=== PATIENT | female | born 1980 | race African-American/Black ===

== ENCOUNTER 2017-04-15 09:47 | Emergency (ER) | payer MEDICARE, OTHER ==
[~2017-04-15] VITALS: Wt 93.5 kg
--- NOTE | 2017-04-15 10:48 | ERD ---
ER Documentation Chief Complaint Chief Complaint DIZZINESS, PALPITATIONS, EPIGASTRIC PAIN RADIATES TO BACK HPI 37-year-old female presented with a chief complaint of palpitations 4 hours. Patient has a history of hypothyroidism. It takes Synthroid. States that she has been taking the correct amount for the past few days. Patient does have a history of mitral valve prolapse is being followed by pulmonary disease specialist. Patient is a half pack smoker per day. Caffeine use. Discussed on the 24 hour shift. Denies any chest pain, shortness of breath, sweating, significant cardiac history, fever, chills. Patient also reports left upper quadrant abdominal pain for the past 3 months. Pain comes and goes. Describes mild constipation. Stools are described as small and regular in color. Denies nausea, vomiting, diarrhea, decreased appetite or radiation of pain. Vaccination status up-to-date. No recent travel. Patient has no other complaints and describes no other associated manifestations. Nursing notes have been reviewed and are consistent with history given. ROS All systems reviewed and are negative except as per history of present illness. Allergies Allergies: Coded Allergies: No Known Allergy (Unverified , 04/15/17) Physical Exam Vitals Vital Signs Date Time Temp Pulse Resp B/P Pulse Ox O2 Delivery O2 Flow Rate FiO2 04/15/17 09:53 97.9 80 17 123/64 100 Physical Exam Const: Well-appearing 37-year-old female in no acute distress Head: Atraumatic Eyes: Normal Conjunctiva ENT: Normal External Ears, Nose and Mouth. Neck: Full range of motion..~ No meningismus. Resp: Clear to auscultation bilaterally Cardio: Regular rate and rhythm, no murmurs. No murmur with handgrip. Abd: Soft, non distended. Normal bowel sounds. Nontender in all 4 quadrants. No McBurney's point tenderness. Negative Stafford sign. Negative psoas sign. No rebound tenderness. No guarding. Skin: No petechiae or rashes Back: No midline or flank tenderness Ext: No cyanosis, or edema Neur: Awake and alert Psych: Normal Mood and Affect Procedures/MDM 37-year-old female presents with a chief complaint of palpitations 4 hours. EKG was obtained read by me as normal sinus rhythm, no T-wave abnormalities, no ST elevation or depression, normal axis, and good baseline. Physical exam was unremarkable. Patient also is complaining of abdominal pain with an unremarkable abdominal examination without tenderness. Patient is well- appearing tolerates p.o. I have no suspicion for ACS, pneumonia, pneumothorax, hemothorax, PE, appendicitis, cholangitis, pancreatitis, diverticulitis, or other acute abdomen. Most likely diagnosis is palpitations secondary to lifestyle and constipation versus IBS. I have spoke with the patient regarding their condition and future management. They have verbally responded that they understand their status and treatment plan. The patients vitals are stable, and their current condition is appropriate for discharge. The patient will be given discharge instructions with return precautions. Departure Diagnosis: Primary Impression: Palpitations Additional Impression: Abdominal pain Abdominal location: unspecified location Qualified Code: R10.9 - Abdominal pain, unspecified abdominal location Condition: Stable Patient Instructions: Palpitations Additional Instructions: Follow up with your PCP within the next 1-3 days for a more thorough evaluation and a possible referral to a specialist. Return the the emergency department immediately if symptoms worsen or change. If you have any questions regarding medications, ask your pharmacist or us before you leave. If any adverse reactions occur while taking your medications, discontinue the treatment and return to the emergency department immediately. PAULINA ORELLANA PA-C Apr 15, 2017 10:48
== END 2017-04-15 11:18 | disposition home or self-care (01) ==
LOC: FTE 09:47
DX: R00.2 Palpitations (principal); R10.13 Epigastric pain; E03.9 Hypothyroidism, unspecified
CPT/HCPCS: 93005

== ENCOUNTER 2018-10-17 13:23 | Emergency (ER) | payer MEDICARE, OTHER ==
[~2018-10-17] VITALS: Wt 90.6 kg
[2018-10-17 13:31] VITALS: BP 127/85; PULSE 83; RESP 18
--- NOTE | 2018-10-17 14:00 | ERD ---
ER Documentation Chief Complaint Chief Complaint NON PROVOKED CHEST PAIN AND DIZZINESS SINCE LAST NIGHT. MILD SOB. NO NEURO ROS All systems reviewed and are negative except as per history of present illness. Allergies Allergies: Coded Allergies: No Known Allergy (Unverified , 04/15/17) PMhx/Soc History of Surgery: Yes (THYROIDECTOMY) Anesthesia Reaction: No Hx Neurological Disorder: No Hx Respiratory Disorders: No Hx Cardiac Disorders: Yes (MITRAL VALVE ) Hx Psychiatric Problems: No Hx Miscellaneous Medical Probl: No Hx Alcohol Use: Yes (OCCASIONAL) Hx Substance Use: No Hx Tobacco Use: Yes (8 CIGS/DAY) Physical Exam Vitals Vital Signs Date Temp Pulse Resp B/P (MAP) Pulse Ox O2 O2 Flow FiO2 Time Delivery Rate 10/17/18 98.2 83 18 127/85 98 13:31 (99) Physical Exam Const: No acute distress Head: Atraumatic Eyes: Normal Conjunctiva ENT: Normal External Ears, Nose and Mouth. Neck: Full range of motion. No meningismus. Resp: Clear to auscultation bilaterally Cardio: Regular rate and rhythm, no murmurs Abd: Soft, non tender, non distended. Normal bowel sounds Skin: No petechiae or rashes Back: No midline or flank tenderness Ext: No cyanosis, or edema Neur: Awake and alert Psych: Normal Mood and Affect PAULINA ETIENNE MD Oct 17, 2018 14:00
== END 2018-10-17 15:45 | disposition home or self-care (01) ==
LOC: E/R 13:23
DX: R07.9 Chest pain, unspecified (principal)
CPT/HCPCS: 93005